=== PATIENT | male | born 1960 | race Caucasian/White ===

== ENCOUNTER → 2017-04-24 | Outpatient (CLI) | payer OTHER ==
[~2017-04-24] MED LIST: AMIT25TA PO; AMOX1TAB61 PO; ASPI-496 PO; ATOR40TA78 PO; CEPH-368 PO; DIAZ5TAB PO; MELO15TA24 PO; MELOXICAM PO; METH750T2 PO; OXYC10TA6 PO; OXYC1TAB7 PO; PANT40TA5 PO; WILL BRING LIST
[2017-04-24 09:11] LABS: HEMATOCRIT 46.4 % (39.2-51.8); HEMOGLOBIN 15.8 g/dL (13.7-18.0); WHITE BLOOD COUNT 9.9 x10^3/uL (3.4-10)
[2017-04-24 09:23] LABS: ASPARTATE AMINO TRANSFERASE 13 U/L (15-37); BLOOD UREA NITROGEN 18 mg/dL (7-18)
[2017-04-24 10:25] LABS: PATH.CAST-FLAG NOT PRESENT; SPERM-FLAG NOT PRESENT; SRC-FLAG NOT PRESENT; XTAL-FLAG NOT PRESENT; YLC-FLAG NOT PRESENT
== END | disposition home or self-care (01) ==
LOC: STAR 08:03
PROVIDERS: ATTEND Orthopaedic Surgery Orthopaedic Surgery of the Spine
DX: Z01.818 Encounter for other preprocedural examination (principal); R79.1 Abnormal coagulation profile
CPT/HCPCS: 36415; 71020; 80053; 81001; 85025; 85610; 85651; 85730; 93005

== ENCOUNTER 2017-05-01 08:05 | Inpatient (IN) | payer OTHER ==
[~2017-05-01] VITALS: Ht 188 cm; Wt 86.3 kg
[~2017-05-01 08:05] MED LIST changes: +BACITRACIN 50,000 UNIT ONE; +BUPIVACAINE/PF 0.5% ONE; -CEPH-368 PO; -DIAZ5TAB PO; +EPINEPHRINE 1 MG/ML, 1ML ONE; -OXYC10TA6 PO; +THROMBIN 20,000 UNIT VIAL TP ONE; +VANCOMYCIN 1,000 MG ONE
[2017-05-01 10:43] VITALS: BP 120/86
[2017-05-01] MEDS ORDERED: VANCOMYCIN PMX 1GM/200ML 200 ML IV ONE (11:00)
[2017-05-01] MEDS ORDERED: DIAZEPAM 5 MG/ML, 10ML VIAL IVPush ONE (11:00)
[2017-05-01] MEDS ORDERED: LIDOCAINE 1%, 2ML ONE (11:10)
[2017-05-01] MEDS ORDERED: LACTATED RINGERS 1,000 ML IV SCH (11:18)
[2017-05-01] MEDS ORDERED: FENTANYL PF 250 MCG/5ML ONE (11:30)
[2017-05-01] MEDS ORDERED: MIDAZOLAM 1 MG/ML, 2ML ONE (11:30)
[2017-05-01] MEDS ORDERED: LIDOCAINE 1%, 2ML SQ PRN (11:30)
[2017-05-01] MEDS ORDERED: HYDROmorphone 2 MG/ML, 1ML ONE (11:33)
[2017-05-01] MEDS ORDERED: PROPOFOL 10 MG/ML, 20ML ONE (11:41)
[2017-05-01] MEDS ORDERED: ONDANSETRON 2MG/ML, 2ML ONE ×2 (11:41)
[2017-05-01] MEDS ORDERED: ROCURONIUM 10 MG/ML ONE (11:41)
[2017-05-01] MEDS ORDERED: CEFAZOLIN 1,000 MG ONE ×2 (11:41)
[2017-05-01] MEDS ORDERED: DEXAMETHASONE 4 MG/ML, 1ML ONE ×3 (11:42)
[2017-05-01] MEDS ORDERED: BUPIVACAINE/PF-EPI 0.5% 1:200K IM ONE (13:15)
[2017-05-01] MEDS ORDERED: ACETAMINOPHEN 325 MG TABLET PO PRN (14:00)
[2017-05-01] MEDS ORDERED: MEPERIDINE/PF 25MG/0.5ML IVPush PRN (14:00)
[2017-05-01] MEDS ORDERED: ONDANSETRON 2MG/ML, 2ML IVPush PRN (14:00)
[2017-05-01] MEDS ORDERED: LABETALOL 5MG/ML, 20ML IV PRN ×2 (14:00→16:00)
[2017-05-01] MEDS ORDERED: OXYcodone 5 MG/5 ML ORAL.SOL UDC PO PRN (14:00)
[2017-05-01] MEDS ORDERED: FENTANYL PF 100 MCG/2ML ONE (14:19)
[2017-05-01] MEDS ORDERED: HYDROmorphone 1 MG/ML, 1ML ONE (14:19)
[2017-05-01] MEDS: FENTANYL PF 100 MCG/2ML IV PRN ×2 (14:40→14:45)
[2017-05-01] MEDS: HYDROmorphone 1 MG/ML, 1ML IV PRN ×2 (14:50→15:00)
[2017-05-01] MEDS ORDERED: OXYcodone 5 MG/5 ML ORAL.SOL UDC ONE (14:59)
[2017-05-01] MEDS ORDERED: ACETAMINOPHEN 650 MG/20.3 ML UDC ONE (14:59)
[2017-05-01] MEDS ORDERED: DIPHENHYDRAMINE 50 MG/ML, 1ML IVPush PRN (16:00)
[2017-05-01] MEDS ORDERED: KETOROLAC 30 MG/1 ML IV PRN (16:00)
[2017-05-01] MEDS ORDERED: PROMETHAZINE 25 MG/ML, 1ML IM PRN (16:00)
[2017-05-01] MEDS ORDERED: DIAZEPAM 5 MG/ML, 2ML IV PRN (16:00)
[2017-05-01] MEDS ORDERED: DIAZEPAM 5 MG TABLET PO PRN (16:00)
[2017-05-01] MEDS ORDERED: DIPHENHYDRAMINE 50 MG/ML, 1ML IM PRN (16:00)
[2017-05-01] MEDS ORDERED: ONDANSETRON 2MG/ML, 2ML IV PRN (16:00)
[2017-05-01] MEDS ORDERED: DIPHENHYDRAMINE 50 MG CAPSULE PO PRN (16:00)
[2017-05-01] MEDS ORDERED: morphine SULFATE 10 MG/ML, 1ML IV PRN (16:00)
[2017-05-01] MEDS ORDERED: BISACODYL 10 MG SUPP PR PRN (16:00)
[2017-05-01] MEDS ORDERED: MAGNESIUM HYDROXIDE 8%, 30ML UDC PO PRN (16:00)
[2017-05-01] MEDS ORDERED: SODIUM CHLORIDE 0.9% 1,000ML IV ONE (16:30)
[2017-05-01] MEDS ORDERED: OXYcodone IR 5MG TABLET PO PRN (16:30)
[2017-05-01] MEDS: D5%-0.9% NACL+KCL 20MEQ 1,000 ML IV SCH (17:41)
[2017-05-01] MEDS: CEFAZOLIN PMX 1GM/50ML 50 ML IVPB SCH (17:41)
[2017-05-01 19:27] VITALS: BP 116/67
[2017-05-01] MEDS ORDERED: ZOLPIDEM 5MG TABLET PO PRN (21:00)
[2017-05-01] MEDS ORDERED: ATORVASTATIN 40 MG TABLET PO SCH (21:00)
[2017-05-01] MEDS: OXYcodone IR 5MG TABLET PO PRN (21:25)
[2017-05-02] VITALS: BP 102/61
[2017-05-02] MEDS: OXYcodone IR 5MG TABLET PO PRN ×4 (01:03→13:53)
[2017-05-02] MEDS: CEFAZOLIN PMX 1GM/50ML 50 ML IVPB SCH (01:03)
[2017-05-02] MEDS: D5%-0.9% NACL+KCL 20MEQ 1,000 ML IV SCH (01:05)
[2017-05-02 04:00] VITALS: BP 97/57
[2017-05-02] MEDS ORDERED: ASPIRIN 81 MG TABLET EC PO SCH (06:00)
[2017-05-02] MEDS ORDERED: PANTOPROZOLE 40MG TABLET PO SCH (07:30)
[2017-05-02 08:15] VITALS: BP 103/61
[2017-05-02] MEDS ORDERED: SENNA/DOCUSATE TABLET PO SCH (09:00)
[2017-05-02] MEDS ORDERED: OXYC10TA6 PO (13:42)
[2017-05-02] MEDS ORDERED: CEPH-368 PO (13:43)
[2017-05-02] MEDS ORDERED: DIAZ5TAB PO (13:43)
== END 2017-05-02 14:20 | disposition home or self-care (01) | DRG 517 ==
LOC: ORIP 10:26 → 4NOR 15:41
PROVIDERS: ADMIT Orthopaedic Surgery Orthopaedic Surgery of the Spine; ATTEND Orthopaedic Surgery Orthopaedic Surgery of the Spine
PROC: 0QB00ZZ Excision of Lumbar Vertebra, Open Approach (ICD-10-PCS; 2017-05-01)
PROC: 0SP004Z Removal of Internal Fixation Device from Lumbar Vertebral Joint, Open Approach (ICD-10-PCS; 2017-05-01)
PROC: 0QB10ZZ Excision of Sacrum, Open Approach (ICD-10-PCS; 2017-05-01)
PROC: 4A11X4G Monitoring of Peripheral Nervous Electrical Activity, Intraoperative, External Approach (ICD-10-PCS; 2017-05-01)
PROC: 0SP304Z Removal of Internal Fixation Device from Lumbosacral Joint, Open Approach (ICD-10-PCS; principal; 2017-05-01 12:30)
DX: T84.84XA Pain due to internal orthopedic prosthetic devices, implants and grafts, initial encounter (principal); E78.5 Hyperlipidemia, unspecified; Y83.1 Surgical operation with implant of artificial internal device as the cause of abnormal reaction of the patient, or of later complication, without mention of misadventure at the time of the procedure; Z87.891 Personal history of nicotine dependence
CPT/HCPCS: 36415; 72100; 86850; 86900; J0171; J0690; J1100; J1170; J2250; J2405; J2704; J3010; J3360; J3370; J3490; C1760; C1762; C9362; J3480; J7120

== ENCOUNTER → 2018-03-23 | Outpatient (CLI) | payer OTHER ==
[~2018-03-23] MED LIST changes: -BACITRACIN 50,000 UNIT ONE; -BUPIVACAINE/PF 0.5% ONE; +CEPH-368 PO; +DIAZ5TAB PO; -EPINEPHRINE 1 MG/ML, 1ML ONE; +OXYC10TA6 PO; -THROMBIN 20,000 UNIT VIAL TP ONE; -VANCOMYCIN 1,000 MG ONE
== END | disposition home or self-care (01) ==
LOC: STAR 09:47
PROVIDERS: ATTEND Podiatrist Foot & Ankle Surgery
DX: Z01.810 Encounter for preprocedural cardiovascular examination (principal); Z87.891 Personal history of nicotine dependence
CPT/HCPCS: 93005

== ENCOUNTER → 2018-08-03 | Outpatient (CLI) | payer MEDICARE | END | disposition home or self-care (01) | LOC: CFH 07:22 | DX: Z13.6 Encounter for screening for cardiovascular disorders (principal); Z87.891 Personal history of nicotine dependence | CPT/HCPCS: 76706 ==